=== PATIENT | male | born 1985 | race African-American/Black ===

== ENCOUNTER 2021-08-10 22:57 | Emergency (ER) | payer SELFPAY ==
[2021-08-10 23:11] VITALS: BP 156/99; PULSE 78; TEMP 98.3; BMI 47.4
[2021-08-11] MEDS ORDERED: LIDOCAINE 5% TOPICAL PATCH TP ONE (00:54)
[2021-08-11] MEDS ORDERED: KETOROLAC TROMETHAMINE 30 MG/1 ML VIAL IM ONE (00:54)
[2021-08-11] MEDS ORDERED: METHOCARBAMOL 500 MG TABLET PO ONE (00:54)
[2021-08-11] MEDS ORDERED: METHOCARBAMOL 500 MG TABLET ONE (01:24)
[2021-08-11] MEDS ORDERED: LIDOCAINE 5% TOPICAL PATCH ONE (01:24)
[2021-08-11] MEDS ORDERED: KETOROLAC TROMETHAMINE 30 MG/1 ML VIAL ONE (01:25)
[2021-08-11] MEDS ORDERED: LIDOCAINE PATCH REMOVAL MC SCH (22:00)
== END 2021-08-11 02:30 | disposition home or self-care (01) ==
LOC: JER 22:57
PROC: 3E0233Z Introduction of Anti-inflammatory into Muscle, Percutaneous Approach (ICD-10-PCS; principal; 2021-08-10)
DX: M54.50 Low back pain, unspecified (principal)
CPT/HCPCS: 72100-TC-FY; 99284-25